=== PATIENT | female | born 1940 | race Caucasian/White ===

== ENCOUNTER 2021-04-22 16:18 | Inpatient (IN) | payer MEDICARE, SELFPAY ==
[2021-04-22 17:56] VITALS: BP 120/61; PULSE 83; RESP 24; TEMP 36.9; O2SAT 88; BMI 16.2
--- NOTE | 2021-04-22 18:13 | XRR_ITS ---
PROCEDURE INFORMATION: Exam: XR Chest Exam date and time: 04/22/2021 6:13 PM Age: 81 years old Clinical indication: Cough and shortness of breath; Patient HX: SOB, weakness, and cp for 2 weeks TECHNIQUE: Imaging protocol: XR of the chest. Views: 1 view. COMPARISON: CR Chest 1 [place] [id number] 11/12/2015 9:41 AM FINDINGS: Lungs: Emphysematous changes. Patchy posterior left lower lobe opacification. Pleural spaces: Unremarkable. No pleural effusion. No pneumothorax. Heart/Mediastinum: Unremarkable. No cardiomegaly. Bones/joints: Unremarkable. XR/XR chest 1V portable [id number] IMPRESSION: Left lower lobe bronchopneumonia suspected.
[2021-04-22 19:16] VITALS: RESP 20
[2021-04-22] MEDS: morphine 4 mg/mL SDV 1 mL IVP (19:16)
[2021-04-22 19:23] LABS: Basophils # 0.1 10^3/uL (0.0-0.1); Basophils % 0.5 %; Eosinophils % 0.2 %; Hematocrit 42.6 % (37.0-47.0); Hemoglobin 14.5 g/dL (11.5-15.3); Lymphocytes # 0.8 10^3/uL (0.8-4.8); Lymphocytes % 8.5 %; Mean Corpuscular Hemoglobin 29.6 pg (28.0-34.0); Mean Corpuscular Volume 86.9 fl (81-99); Mean Platelet Volume 11.3 fL (7.4-10.4); Monocytes # 0.7 10^3/uL (0.2-0.9); Monocytes % 7.5 %; Neutrophils # 7.54 10^3/uL (1.8-7.7); Neutrophils % 82.1 %; Nucleated Red Blood Cells % 0 %; Platelet Count 220 10^3/cmm (130-400); Red Cell Distribution Width 13.2 % (12.1-15.1); White Blood Count 9.2 10^3/uL (4.0-10.0)
--- NOTE | 2021-04-22 19:29 | W.ED.WEAKNES ---
HPI - Weakness General: Chief complaint: Weakness Stated complaint: really sick, very weak Time Seen by Provider: 04/22/21 18:04 Source: patient Mode of arrival: ambulatory Limitations: no limitations History of Present Illness: 81-year-old female states that over the last 1 to 2 weeks she has been having extreme weakness along with diarrhea and nausea. States she has had a decreased appetite and has been losing weight. States that she has became so weak that she has not been able to walk. Does have some dyspnea pulse ox was in the 80s here on room air denies any fevers. She denies any worsening improving factors. Associated symptoms: Denies chest pain, chills, dysuria, easy bruising, fever(s), headache(s), nausea or vomiting Review of Systems Const: Denies: fever(s), chills, body aches or change in appetite Eyes: Denies: blurry vision or eye discomfort ENMT: Denies: throat pain or dental pain Card: Denies: chest pain Resp: Denies: dyspnea GI: Denies: abdominal pain, nausea, vomiting or diarrhea : Denies: dysuria Musc: Denies: neck pain or back pain Skin/Breast: Denies: rash Neuro: Reports: weakness in extremities; Denies: headache(s) Psych: Denies: depression Yassine/Lymph: Denies: easy bruising All/Imm: Denies: urticaria PFSH ED PFSH: Medical History COPD (chronic obstructive pulmonary disease) Diabetes Hyperlipidemia Hypertension Surgical History History of hip replacement left hip History of hysterectomy for cancer History of tonsillectomy Family History Other Cancer Lung disease Denies family history of Diabetes Hypertension Social History Smoking and tobacco status: current every day smoker Alcohol intake: current Alcohol intake frequency: few times a week Alcohol type: beer History of recent travel: No Physical Exam Const: COMMON NORMALS: no acute distress, patient oriented x3 and healthy appearing GENERAL APPEARANCE: disheveled, lethargic and ill appearing ORIENTATION/CONSCIOUSNESS: Yes lethargic HENMT: COMMON NORMALS: normocephalic and atraumatic HEAD & SCALP: normocephalic and atraumatic Eye: COMMON NORMALS: Equal, round and reactive pupils present and EOMs intact bilaterally PUPIL: Yes Equal, round and reactive pupils present Neck/C-Spine: COMMON NORMALS: full ROM and supple Chest: COMMONS NORMALS: normal inspection of the chest and normal palpation of entire chest wall Resp: COMMON NORMALS: normal respiratory effort, No retractions, No use of accessory muscles and clear to auscultation bilaterally AUSCULTATION: clear to auscultation bilaterally Cardio: COMMON NORMALS: regular rate, regular rhythm and No murmurs present (Cardio) RATE: regular rate RHYTHM: regular rhythm GI: COMMON NORMALS: Normal to inspection, nondistended, normoactive bowel sounds present, Soft to palpation, non-tender and no masses PALPATION: Yes Soft to palpation Extremity: COMMON NORMALS: normal to inspection and full ROM Neuro: COMMON NORMALS: patient oriented x3, moves all extremities and no focal motor deficits SENSORIUM/ORIENTATION: Yes lethargic Psych: COMMON NORMALS: mental status grossly normal, Normal thought process present and cooperative THOUGHT PROCESS: Normal thought process present Skin: COMMON NORMALS: no rashes or lesions noted and no wounds GENERAL SKIN EXAM: no rashes or lesions noted Course Vital Signs: Vital signs: Vital Signs Temperature 98.4 F 04/22/21 17:56 Pulse Rate 83 04/22/21 17:56 Respiratory Rate 20 H 04/22/21 19:16 Blood Pressure 120/61 04/22/21 17:56 Pulse Oximetry 88 L 04/22/21 17:56 MDM - Weakness Medical Decision Making Patient presents here with generalized weakness she is very frail here and cachectic. She is unable to ambulate x-ray does show possible pneumonia she also has hypokalemia spoke to hospitalist will admit for hydration we will treat her hypokalemia along with probably physical therapy. Lab Data : 04/22/21 19:13 04/22/21 19:13 Radiology Impressions Chest X-Ray 04/22/21 18:13 IMPRESSION: Left lower lobe bronchopneumonia suspected. Laboratory Results WBC 9.2 10^3/uL (4.0-10.0) 04/22/21 19:13 RBC 4.90 10^6/uL (4.1-5.3) 04/22/21 19:13 Hgb 14.5 g/dL (11.5-15.3) 04/22/21 19:13 Hct 42.6 % (37.0-47.0) 04/22/21 19:13 MCV 86.9 fl (81-99) 04/22/21 19:13 MCH 29.6 pg (28.0-34.0) 04/22/21 19:13 MCHC 34.0 g/dL (30.0-36.0) 04/22/21 19:13 RDW 13.2 % (12.1-15.1) 04/22/21 19:13 Plt Count 220 10^3/cmm (130-400) 04/22/21 19:13 MPV 11.3 fL (7.4-10.4) H 04/22/21 19:13 Neut % (Auto) 82.1 % 04/22/21 19:13 Lymph % (Auto) 8.5 % 04/22/21 19:13 [place] % (Auto) 7.5 % 04/22/21 19:13 Eos % (Auto) 0.2 % 04/22/21 19:13 Baso % (Auto) 0.5 % 04/22/21 19:13 Neut # (Auto) 7.54 10^3/uL (1.8-7.7) 04/22/21 19:13 Lymph # (Auto) 0.8 10^3/uL (0.8-4.8) 04/22/21 19:13 [place] # (Auto) 0.7 10^3/uL (0.2-0.9) 04/22/21 19:13 Eos # (Auto) 0.0 10^3/uL (0.0-0.8) 04/22/21 19:13 Baso # (Auto) 0.1 10^3/uL (0.0-0.1) 04/22/21 19:13 Nucleated RBC % (auto) 0 % 04/22/21 19:13 Nucleated RBCs # 0.0 /100WBC 04/22/21 19:13 Sodium 129 mmol/L (136-145) L 04/22/21 19:13 Potassium 2.6 mmol/L (3.5-5.1) L* 04/22/21 19:13 Chloride 84 mmol/L (98-107) L 04/22/21 19:13 Carbon Dioxide 26 mmol/L (22-29) 04/22/21 19:13 Anion Gap 21.6 (5-19) H 04/22/21 19:13 BUN 18 mg/dL (8-23) 04/22/21 19:13 Creatinine 0.7 mg/dL (0.5-0.9) 04/22/21 19:13 GFR Calculation Not Reportable 04/22/21 19:13 Glucose 404 mg/dL (65-115) H 04/22/21 19:13 Calculated Osmolality 287 mOsm/kg (285-295) 04/22/21 19:13 Calcium 8.2 mg/dL (8.5-10.5) L 04/22/21 19:13 Total Bilirubin 0.4 mg/dL (0.15-1.2) 04/22/21 19:13 AST 26 U/L (0-32) 04/22/21 19:13 ALT 16 U/L (0-33) 04/22/21 19:13 Alkaline Phosphatase 62 IU/L (35-105) 04/22/21 19:13 Troponin T Baseline 21 ng/L (0-10) H 04/22/21 20:10 Total Protein 6.3 g/dL (6.6-8.7) L 04/22/21 19:13 Albumin 3.3 g/dL (3.5-5.2) L 04/22/21 19:13 Globulin 3.0 g/dL (1.3-4.6) 04/22/21 19:13 Lipase 5 U/L (13-60) L 04/22/21 19:13 Discharge Plan Discharge Patient Disposition: Admitted As Inpatient Clinical Impression: Weakness, Pneumonia, Hypokalemia Condition: Stable Prescriptions: No Action gabapentin 100 mg capsule 100 mg PO BID PRN0RF pravastatin 40 mg tablet 40 mg PO DAILY 0RF losartan 100 mg tablet 100 mg PO DAILY 0RF metformin 500 mg tablet 500 mg PO BID 0RF insulin detemir U-100 100 unit/mL (3 mL) insulin pen 100 unit SUBCUT DAILY 0RF Rx Instructions: as directed by pcp insulin aspart U-100 [Novolog Flexpen U-100 Insulin] 100 unit/mL (3 mL) insulin pen 100 unit SUBCUT DAILY 0RF Rx Instructions: as directed by pcp Referrals: Behzad Basilio MD [Family Provider] - Coding Level of Care Code ED Spooler Rubber Strand for Chg Fwd Exam Comprehensive
[2021-04-22] MEDS: cefTRIAXone 1,000 MG in sodium chloride 0.9% (plus) 50 ML 100 MG IV (19:43)
[2021-04-22] MEDS: azithromycin 500 MG in sodium chloride 0.9% 250 ML 250 MG IV (19:43)
[2021-04-22 19:52] LABS: Alanine Aminotransferase 16 U/L (0-33); Albumin Level 3.3 g/dL (3.5-5.2); Alkaline Phosphatase 62 IU/L (35-105); Anion Gap 21.6 (5-19); Aspartate Amino Transferase 26 U/L (0-32); Blood Urea Nitrogen 18 mg/dL (8-23); Calcium 8.2 mg/dL (8.5-10.5); Carbon Dioxide 26 mmol/L (22-29); Chloride 84 mmol/L (98-107); Creatinine Clr Calc Pharmacy 35.7443; Glucose 404 mg/dL (65-115); Lipase 5 U/L (13-60); Osmolality Calculated 287 mOsm/kg (285-295); Sodium 129 mmol/L (136-145); Total Bilirubin 0.4 mg/dL (0.15-1.2); Total Protein 6.3 g/dL (6.6-8.7)
[2021-04-22 19:54] LABS: Potassium 2.6 mmol/L (3.5-5.1)
--- NOTE | 2021-04-22 20:14 | ECG_ITS ---
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 Measurements Intervals [place] Rate: 80 P: 75 AL: 202 QRS: -23 QRSD: 116 T: 92 QT: 383 QTc: 442 Interpretive Statements SINUS RHYTHM MODERATE INTRAVENTRICULAR CONDUCTION DELAY [105+ ms QRS DURATION, 80+ ms Q/S IN V1/V2, NO Q AND 60+ ms R IN I/aVL/V5/V6] ABNORMAL QRS-T ANGLE [QRS-T AXIS DIFFERENCE > 60] Compared to ECG 11/12/2015 09:41:01 Intraventricular conduction delay now present Sinus tachycardia no longer present Left anterior fascicular block no longer present Electronically Signed On 04-22-2021 20:21:55 INTERIOR DECORATOR PAPERHANGING by Mckinley Mcclellan M.D. [id number]
[2021-04-22 20:54] LABS: Troponin(5th) Baseline 21 ng/L (0-10)
[2021-04-22 21:14] LABS: Adenovirus Not Detected (NOT DETECT); Chlamydia Pneumoniae Not Detected (NOT DETECT); Coronavirus 229E,HKU1,NL63,OC4 Not Detected (NOT DETECT); Human Metapneumovirus Not Detected (NOT DETECT); Human Rhinovirus/Enterovirus Detected (NOT DETECT); Influenza A Not Detected (NOT DETECT); Influenza A H1 Not Detected (NOT DETECT); Influenza A H1-2009 Not Detected (NOT DETECT); Influenza A H3 Not Detected (NOT DETECT); Influenza B Not Detected (NOT DETECT); Mycoplasma Pneumoniae Not Detected (NOT DETECT); Parainfluenza Virus Type 1 Not Detected (NOT DETECT); Parainfluenza Virus Type 2 Not Detected (NOT DETECT); Parainfluenza Virus Type 3 Not Detected (NOT DETECT); Parainfluenza Virus Type 4 Not Detected (NOT DETECT); Respiratory Syncytial Virus A Not Detected (NOT DETECT); Respiratory Syncytial Virus B Not Detected (NOT DETECT); SARS-COV-2 Detected (NOT DETECT)
[2021-04-22 21:29] LABS: Add Urine Microscopic? YES; Bilirubin Urine Neg (Negative); Blood Urine 2+ (Negative); Glucose Urine UA 4+ (Normal); Ketones Urine 1+ (Negative); Leukocyte Esterase Urine Negative (Negative); Nitrate Urine Negative (Negative); Protein Urine 2+ (Negative); Specific Gravity, Urine 1.015 (1.005-1.030); Urine Appearance Clear (CLEAR); Urine Color Yellow (Yellow); Urobilinogen Urine Neg (Negative); pH Urine 6 (5-7)
[2021-04-22 21:30] LABS: Add Urine Culture? No; Fine Granular Casts Urine 0-4 /lpf; RBC Urine 0-4 /hpf (0-2); Squamous Epithelial Cell Urine 0-4 /hpf (0-5); WBC Urine RARE /hpf (0-5)
[2021-04-22 21:54] LABS: Human Metapneumovirus Not Detected (NOT DETECT); Human Rhinovirus/Enterovirus Detected (NOT DETECT); Results from Genmark
[2021-04-22 21:55] LABS: Results from Genmark
--- NOTE | 2021-04-22 22:08 | PM.HP ---
Providers/Chief Complaint Admitting Physician: Vinnie Parks DO Chief Complaint: really sick, very weak History of Present Illness The patient is an 81-year-old female who presented to [facility] which are possibly 2 weeks prior to hospitalization. In addition to this the patient complains of generalized weakness. Since the time of onset, she admits to rigors, cough productive yellow sputum, diarrhea, myalgia, light headedness, dizziness. She denies fever, nausea, vomiting, wheeze, chest pain, dyspnea, peripheral edema. She present for further evaluation Review of Systems General: Reports: 10 or more systems reviewed and unremarkable except in HPI and below Medications/Allergies Home Medications Medication Instructions Recorded Confirmed Last Taken Type gabapentin 100 mg capsule 100 mg PO BID PRN 06/10/20 06/24/20 Unknown History insulin aspart U-100 100 unit/mL 100 unit SUBCUT DAILY 06/10/20 06/24/20 Unknown History (3 mL) subcutaneous pen (Novolog Flexpen U-100 Insulin aspart) insulin detemir U-100 100 unit/mL 100 unit SUBCUT DAILY 06/10/20 06/24/20 Unknown History (3 mL) subcutaneous pen losartan 100 mg tablet 100 mg PO DAILY 06/10/20 06/24/20 Unknown History metformin 500 mg tablet 500 mg PO BID 06/10/20 06/24/20 Unknown History pravastatin 40 mg tablet 40 mg PO DAILY 06/10/20 06/24/20 Unknown History Allergies Allergy/AdvReac Type Severity Reaction Status Date / Time Corticosteroids Allergy increased Verified 04/22/21 17:56 (Glucocorticoids) blodd sugar PFSH Acute PFSH: Medical History COPD (chronic obstructive pulmonary disease) Diabetes Hyperlipidemia Hypertension Surgical History History of hip replacement left hip History of hysterectomy for cancer History of tonsillectomy Family History Other Cancer Lung disease Denies family history of Diabetes Hypertension Social History Smoking and tobacco status: current every day smoker Alcohol intake: current Alcohol intake frequency: few times a week Alcohol type: beer History of recent travel: No Vitals/I&O/Wt Last Vital Signs Temp 98.4 F 04/22/21 17:56 Pulse 83 04/22/21 17:56 Resp 20 H 04/22/21 19:16 BP 120/61 04/22/21 17:56 Pulse Ox 88 L 04/22/21 17:56 Weight last 48 hrs Weight 40.37 kg Physical Exam Const: COMMON NORMALS: no acute distress, average body habitus, patient oriented x3, no limitations, healthy appearing, alert and well nourished HENMT: COMMON NORMALS: normocephalic, atraumatic, hearing grossly normal bilaterally, external ears normal, EAC's normal, TM's normal bilaterally, Normal external nose present, Normal nasal mucous membranes and turbinates present, moist oral mucous membranes, oropharynx normal, dentition normal and gingiva normal HEAD & SCALP: normal to inspection FACE & SINUS: normal facial exam NOSE: Normal external nose present EXTERNAL EAR: Yes external ears normal Eye: COMMON NORMALS: Equal, round and reactive pupils present, EOMs intact bilaterally, conjunctivae normal, no scleral icterus, no papilledema, normal visual ambrosio by confrontation and fundi normal bilaterally EOM: Yes EOM abnormal Neck/C-Spine: COMMON NORMALS: full ROM, no lymphadenopathy, supple, no meningeal signs, no JVD, Thyroid normal and No carotid bruits Chest: COMMONS NORMALS: normal inspection of the chest, normal palpation of entire chest wall, normal inspection of the breasts and normal palpation of the breasts Resp: COMMON NORMALS: normal respiratory effort, No retractions, No use of accessory muscles, clear to auscultation bilaterally and percussion normal AUSCULTATION: clear to auscultation bilaterally Cardio: COMMON NORMALS: no JVD, regular rate, regular rhythm, S1 normal heart sound present, S2 normal heart sound present, No gallops present (Cardio), No clicks present (Cardio), No murmurs present (Cardio), No rub (Cardio) and Peripheral pulses 2+ throughout GI: COMMON NORMALS: Normal to inspection, nondistended, normoactive bowel sounds present, Soft to palpation, non-tender, No hepatosplenomegaly present, no masses and no bruits : COMMON NORMALS: Yes no CVA tenderness, Yes normal external appearance, Yes normal appearance of the vagina, Yes normal appearance of the cervix, Yes normal bimanual exam, Yes No adnexal tenderness and Yes no masses Back/Pelvis: THORACIC SPINE/UPPER BACK: Yes normal to inspection LUMBAR SPINE/LOWER BACK: Yes normal to inspection Extremity: GENERAL: Yes normal exam except as noted Neuro: COMMON NORMALS: patient oriented x3, CN's II-XII intact bilaterally, moves all extremities, no focal motor deficits, no sensory deficits noted, deep tendon reflexes 2+ bilaterally and gait normal CRANIAL NERVES: Yes CN normal except as noted MOTOR EXAM: 5/5 motor strength present throughout DEEP TENDON REFLEXES: Right triceps reflex intensity grade: 2+, Left triceps reflex intensity grade: 2+, Rt Biceps (C5, C6): 2+, Left biceps reflex intensity grade: 2+, Right brachioradialis reflex intensity grade: 2+, Left brachioradialis reflex intensity grade: 2+, Right patellar reflex intensity grade: 2+, Left patellar reflex intensity grade: 2+, Right ankle reflex intensity grade: 2+ and Left ankle reflex intensity grade: 2+ PUPIL EXAM: Normal pupillary reactivity/response: bilateral, Dilated: bilateral, Pinpoint: bilateral, Mid position: bilateral, Sluggish: bilateral and Fixed/non-reactive: bilateral Psych: COMMON NORMALS: mental status grossly normal, Normal thought process present, cooperative, normal affect, speech normal, activity/motor behavior normal, denies hallucinations, denies homicidal ideation and denies suicidal ideation Data : 04/22/21 19:13 04/22/21 19:13 A&P Assessment and plan (1) Weakness: Status: Acute Plan Left lower lobe pneumonia. A cephamycin 500 Mill grams IV daily plus Rocephin 1 g IV daily plus DuoNeb every 6 hours Hypokalemia. Telemetry monitoring. Will monitor potassium level intermittently and supplements necessary Hyponatremia. We will monitor sodium level intermittently. IV normal saline at 75 ML's per hour Elevated troponin. A symptomatic from an ACS standpoint. Will monitor patient on telemetry and check serial cardiac enzymes. Recheck EKG on the morning of April 23, 2021 Query history of cervical cancer versus uterine cancer, status post hysterectomy. Outpatient follow-up with obstetrics/gynecology and/or hematology/oncology upon discharge if she is still being monitored for this potential medical condition Neuropathy COPD. Not O2 dependent. DuoNeb every 6 hours Diabetes. Will check fasting glucose every before meals and at bedtime and provide insulin sliding scale plus NovoLog 100 units subcu tensely daily plus insulin detemir 100 units of [place] daily plus Metformin 500 Mill grams by mouth twice a day Hyperlipidemia. 1040 Mill grams by mouth daily at bedtime Hypertension. Losartan 100 Mill grams by mouth daily Smoker. The patient becomes regarding smoking cessation DVT Proflex is. Lovenox 30 Milgrom subcutaneous daily Attestations Medical Necessity Statement*: Hospitalization is necessary as witnessed by this H&P. Patient expected to be discharge within 48 hours Coding Level of Care Code Acute Environmental Emergencies Planner for Amie Tolentino Diagnoses Weakness R53.1
[2021-04-22 22:57] LABS: Troponin 5 2HR 24.26 ng/L (0-10)
[2021-04-22 23:00] LABS: Troponin 5 2HR Delta 3.26 ABS# (0-10)
[2021-04-23] VITALS (18 sets, daily range): BP systolic 84–128; BP diastolic 35–59; PULSE 66–82; RESP 16–27; TEMP 36.4–36.7; O2SAT 89–95; BMI 16.2
--- NOTE | 2021-04-23 00:14 | ECG_ITS ---
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 Measurements Intervals [place] Rate: 78 P: 69 [place]: 199 QRS: -40 QRSD: 120 T: 91 QT: 410 QTc: 467 Interpretive Statements SINUS RHYTHM LEFT AXIS DEVIATION [QRS AXIS < -30] MODERATE INTRAVENTRICULAR CONDUCTION DELAY [110+ ms QRS DURATION] ABNORMAL QRS-T ANGLE [QRS-T AXIS DIFFERENCE > 60] Compared to ECG 04/22/2021 19:37:13 Left-axis deviation now present Electronically Signed On 04-23-2021 17:49:30 HEALTHCARE PROF by Markos Childress M.D. [id number]
[2021-04-23] MEDS: potassium chloride ER 20 mEq Tablet 40 MEQ PO (00:50)
--- NOTE | 2021-04-23 00:51 | PC.NURSE ---
patient declines potassium, states chokes on the medications.
[2021-04-23] MEDS: sodium chloride 0.9% 1,000 ML 75 ML IV ×2 (01:51→17:14)
[2021-04-23] MEDS: lidocaine 1% 5 ML in potassium chloride premix 100 ML 50 ML IV ×2 (01:51→04:58)
[2021-04-23] MEDS: enoxaparin 40 mg/0.4 mL Syringe 30 MG SUBCUT (01:51)
[2021-04-23 02:27] LABS: Anion Gap 14.2 (5-19); Blood Urea Nitrogen 17 mg/dL (8-23); Calcium 7.3 mg/dL (8.5-10.5); Carbon Dioxide 32 mmol/L (22-29); Chloride 87 mmol/L (98-107); Creatinine Clr Calc Pharmacy 35.7443; Glucose 450 mg/dL (65-115); Osmolality Calculated 293 mOsm/kg (285-295); Sodium 131 mmol/L (136-145)
[2021-04-23 02:28] LABS: Potassium 2.2 mmol/L (3.5-5.1); Troponin 5 6HR 22.51 ng/L (0-10); Troponin 5 6HR Delta 1.51 ng/L (0-12)
--- NOTE | 2021-04-23 06:00 | ECG_ITS ---
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 Measurements Intervals [place] Rate: 77 P: 79 [place]: 181 QRS: -39 QRSD: 116 T: 87 QT: 406 QTc: 461 Interpretive Statements SINUS RHYTHM LEFT AXIS DEVIATION [QRS AXIS < -30] MODERATE INTRAVENTRICULAR CONDUCTION DELAY [105+ ms QRS DURATION, 80+ ms Q/S IN V1/V2, NO Q AND 60+ ms R IN I/aVL/V5/V6] INTERPRETATION BASED ON A DEFAULT AGE OF 40 YEARS Compared to ECG 04/23/2021 01:12:56 No significant changes Electronically Signed On 04-23-2021 17:50:09 SOCIAL MEDIA MARKETER by Markos Childress M.D. [id number] f
--- NOTE | 2021-04-23 07:17 | PC.NURSE ---
WHILE AT BEDSIDE PT IS IN NAD. PT IS AWAKE SUPINE IN BED AND DENIES ANY FURTHER NEEDS AT THIS TIME. UPDATED FAMILY ON CARE.
[2021-04-23] MEDS: ipratropium-albuterol 3 mL Neb INHALATION ×3 (08:02→21:18)
[2021-04-23] MEDS: cefTRIAXone 1,000 MG in sodium chloride 0.9% (plus) 50 ML 100 MG IV (08:45)
[2021-04-23] MEDS: losartan 50 mg Tablet 100 MG PO (08:46)
--- NOTE | 2021-04-23 08:55 | PC.PHAR ---
pt unable to verify her medications-pts granddaughter ben [phone] states she started helping the pt with her meds-ben states the pt doesnt take any of her medications daily states she only uses prn-gabapentin last filled june 2018-novolog flexpen last filled jan 2020-levemir last filled mar 2018-losartan 06/05/2020-pravastatin last filled feb 2019-pts granddaughter states takes those prn-humana also filled glimepiride 4mg daily may 2019 and a spiriva handihaler feb 2019-notes are made in the pharmacy comments
[2021-04-23] MEDS: azithromycin 500 MG in sodium chloride 0.9% 250 ML 250 MG IV (09:03)
[2021-04-23] MEDS: atorvastatin 40 mg Tablet 20 MG PO (09:06)
[2021-04-23] MEDS: zinc gluconate 50 mg Tablet PO (09:07)
[2021-04-23] MEDS: ascorbic acid 500 mg Tablet PO (09:07)
[2021-04-23 09:17] LABS: Glucose Point of Care 347 mg/dL (70-110)
--- NOTE | 2021-04-23 09:28 | PC.NURSE ---
reported from night nurse that 40 meq of potassium has been adm. infromed dr. ahumada he telephone ordered additional 40 meq iv potassium.
[2021-04-23] MEDS: insulin lispro 100 unit/1 mL SUBCUT ×2 (09:43→12:01)
[2021-04-23] MEDS: dexamethasone 10 mg/mL INJ 6 MG IVP (09:46)
[2021-04-23] MEDS: metformin 500 mg Tablet PO (09:47)
--- NOTE | 2021-04-23 09:55 | PC.NURSE ---
PT IS ON CONTINUOUS SPO2, NIBP, AND CM.
--- NOTE | 2021-04-23 09:56 | PC.NURSE ---
PT PROVIDED WITH MEAL TRAY PER PT REQUEST. PT CONDITION IS UNCHANGED. SHE DENIES ANY FURTHER NEEDS.
[2021-04-23] MEDS: remdesivir 200 MG in sodium chloride 0.9% (100 ml) 60 ML 100 MG IV (10:15)
[2021-04-23] MEDS: lidocaine 1% 5 ML in potassium chloride premix 100 ML 25 ML IV (11:29)
[2021-04-23 11:59] LABS: Glucose Point of Care 311 mg/dL (70-110)
--- NOTE | 2021-04-23 12:05 | PC.NURSE ---
dr. ahumada at bedside speaking with pt. informed him of pt map of 63 verbalized understanding no further orders.
--- NOTE | 2021-04-23 12:06 | PC.NURSE ---
complete bed change performed for incontinence of stool and urine.
--- NOTE | 2021-04-23 13:46 | PC.NURSE ---
attempted report nurse unavailable.
--- NOTE | 2021-04-23 13:56 | PC.NURSE ---
attempted report nurse unavailable.
--- NOTE | 2021-04-23 14:57 | PC.NURSE ---
REPORT GIVEN MELISSA ZARCO.
--- NOTE | 2021-04-23 15:35 | P.PN_ITS ---
Subjective Subjective: Patient was seen and examined this morning, she was complaining of generalized weakness, She is very hard of hearing. Overnight vitals and labs have been reviewed. Medications: Medication Review Details: Generic Name Dose Route Start Last Admin Trade Name Valentin PRN Reason Stop Dose Admin Albuterol/Ipratrop ium 3 ml 04/23/21 03:00 04/23/21 14:45 Ipratropium-Albu terol 3 Ml Neb INHALATION 3 ml Q6H.RESPIRATORY S CH Administration Ascorbic Acid 500 mg 04/23/21 09:00 04/23/21 09:07 Ascorbic Acid 50 0 Mg Tablet PO 500 mg DAILY ONOFRE Administration Atorvastatin Calci um 20 mg 04/23/21 09:00 04/23/21 09:06 Atorvastatin 40 Mg Tablet PO 20 mg DAILY ONOFRE Administration Dexamethasone 6 mg 04/23/21 09:00 04/23/21 09:46 Dexamethasone 10 Mg/Ml Inj IVP 6 mg Q24H ONOFRE Administration Azithromycin 500 m g/ Sodium 250 mls @ 250 mls /hr 04/23/21 09:00 04/23/21 11:30 Chloride IV Infused DAILY ONOFRE Infusion Protocol Ceftriaxone Sodium 1,000 mg/ 50 mls @ 100 mls/ hr 04/23/21 09:00 04/23/21 11:30 Sodium Chloride IV Infused DAILY ONOFRE Infusion Protocol Sodium Chloride 1,000 mls @ 75 ml s/hr 04/23/21 00:53 04/23/21 01:51 Sodium Chloride 0.9% IV 75 mls/hr .[id number] ONOFRE Administration Insulin Detemir 30 unit 04/23/21 09:30 04/23/21 10:18 Insulin Detemir 100 Units/1 Ml SUBCUT 30 unit DAILY ONOFRE Administration Zinc Gluconate 50 mg 04/23/21 09:00 04/23/21 09:07 Zinc Gluconate 5 0 Mg Tablet PO 50 mg DAILY ONOFRE Administration Vitals/I&O/Wt Last Vital Signs Temp 98.4 F 04/22/21 17:56 Pulse 80 04/23/21 15:00 Resp 22 H 04/23/21 15:00 BP 94/42 04/23/21 15:00 Pulse Ox 95 04/23/21 15:00 04/23/21 04/23/21 04/23/21 06:59 14:59 22:59 Intake Total 105 / 405 505 / 505 Balance 105 / 405 505 / 505 Weight last 48 hrs Weight 40.37 kg Physical Exam Const: COMMON NORMALS: patient oriented x3 HENMT: COMMON NORMALS: normocephalic and atraumatic HEAD & SCALP: normocephalic and atraumatic Resp: COMMON NORMALS: clear to auscultation bilaterally AUSCULTATION: clear to auscultation bilaterally Cardio: COMMON NORMALS: regular rate, regular rhythm, S1 normal heart sound present, S2 normal heart sound present, No gallops present (Cardio), No murmurs present (Cardio), No rub (Cardio) and Peripheral pulses 2+ throughout RATE: regular rate RHYTHM: regular rhythm HEART SOUNDS: S1 normal heart sound present and S2 normal heart sound present PERIPHERAL PULSES: Peripheral pulses 2+ throughout GI: COMMON NORMALS: Normal to inspection, nondistended, normoactive bowel sounds present, Soft to palpation, non-tender, No hepatosplenomegaly present and no masses AUSCULTATION: Yes normoactive bowel sounds PALPATION: Yes Soft to palpation and Yes No hepatosplenomegaly present RECTAL EXAM: deferred Extremity: COMMON NORMALS: no clubbing, cyanosis or edema and no pedal edema Neuro: COMMON NORMALS: patient oriented x3 Data : 04/22/21 19:13 04/23/21 02:04 Micro: Microbiology 04/23/21 09:21 Blood Culture - Preliminary Blood SPECIMEN COLLECTED 04/23/21 09:25 Blood Culture - Preliminary Blood SPECIMEN COLLECTED 04/22/21 20:45 C.difficile Toxin B Gene (PCR) - Final Stool Routine Collection A&P Assessment and plan (1) Pneumonia due to COVID-19 virus: Status: Acute (2) Hypokalemia: Status: Acute (3) Diabetes: Status: Acute (4) COPD (chronic obstructive pulmonary disease): Status: Acute (5) Hypertension: Status: Acute Plan 81-year-old female with past medical history of diabetes hypertension dyslipidemia COPD not on home oxygen, smoker came in with chief complaint of productive cough with yellow sputum , generalized weakness diarrhea , fatigue , myalgia lightheadedness dizziness. #COVID-19 pneumonia: X-ray chest suggestive of left lower lobe infiltrates Covid PCR positive Currently she is requiring 2 Ls supplemental oxygen. Currently on Covid protocol Follow inflammatory markers (ESR CRP D-dimer ferritin LDH ) Follow urine Legionella antigen Follow urine bacterial antigen panel Follow blood culture Urine culture and urinalysis Sputum Gram stain and culture Continue dexamethasone 6 mg IV daily Continue remdesivir Continue ascorbic acid, zinc DuoNebs Supplemental oxygen as needed Incentive spirometry flutter valve Tessalon Jeovanny She is empirically on ceftriaxone and azithromycin #Diabetes: Follow HbA1c Levemir 30 units subcu daily High-dose sliding scale Carbohydrate consistent diet Fingerstick glucose #Hypertension: Currently she is hypotensive Continue to hold losartan #Hypokalemia: Status post 80 mEq IV potassium Continue to monitor BMP #COPD: Not on home oxygen Duo nebs PLAN 1 #DVT prophylaxis: On Lovenox #CODE STATUS: AND #Disposition: Patient wants to return home upon recovery Attestations Medical Necessity Statement*: Patient is still in hospital for management of Covid pneumonia. Time Spent in Patient Care: Greater than 35 minutes (>than 50% of time spent in counselling and/or direct pt care on unit) . Coding Level of Care Code Acute Offset Plate Maker for [facility] Fwd Exam Detailed Diagnoses Pneumonia due to COVID-19 virus U07.1; J12.82 Hypokalemia E87.6 Diabetes E11.9 COPD (chronic obstructive pulmonary disease) J44.9 Hypertension I10
[2021-04-23 18:16] LABS: Glucose Point of Care 187 mg/dL (70-110)
[2021-04-23 20:59] LABS: Glucose Point of Care 97 mg/dL (70-110)
[2021-04-24] VITALS (12 sets, daily range): BP systolic 101–124; BP diastolic 53–74; PULSE 62–86; RESP 16–24; TEMP 36.3–36.9; O2SAT 94–97
[2021-04-24] MEDS: ipratropium-albuterol 3 mL Neb INHALATION ×4 (02:25→21:20)
[2021-04-24] MEDS: sodium chloride 0.9% 1,000 ML 75 ML IV (03:34)
[2021-04-24] MEDS: remdesivir 100 MG in sodium chloride 0.9% (100 ml) 80 ML IV (05:54)
[2021-04-24 06:05] LABS: Basophils # 0.1 10^3/uL (0.0-0.1); Hematocrit 44.7 % (37.0-47.0); Hemoglobin 13.9 g/dL (11.5-15.3); Lymphocytes # 1.3 10^3/uL (0.8-4.8); Mean Corpuscular HGB Conc 31.1 g/dL (30.0-36.0); Mean Corpuscular Hemoglobin 29.1 pg (28.0-34.0); Mean Corpuscular Volume 93.5 fl (81-99); Monocytes # 0.6 10^3/uL (0.2-0.9); Monocytes % 6.7 %; Neutrophils % 75.3 %; Nucleated Red Blood Cells % 0 %; Platelet Count 257 10^3/cmm (130-400); Red Blood Count 4.78 10^6/uL (4.1-5.3); Red Cell Distribution Width 13.3 % (12.1-15.1); White Blood Count 8.9 10^3/uL (4.0-10.0)
[2021-04-24 06:11] LABS: Erythrocyte Sedimentation Rate 14 mm/hr (0-15)
[2021-04-24 06:17] LABS: D Dimer 1.72 ug/mIFEU (0-0.59)
[2021-04-24 06:23] LABS: Estmated Average Glucose 306; Hemoglobin A1C 12.3 % (4.0-6.0)
[2021-04-24 06:29] LABS: Blood Urea Nitrogen 15 mg/dL (8-23); C Reactive Protein 118.2 mg/L (0.0-4.9); Calcium 8.3 mg/dL (8.5-10.5); Carbon Dioxide 27 mmol/L (22-29); Chloride 98 mmol/L (98-107); Ferritin 662 ng/mL (15-150); Glucose 66 mg/dL (65-115); Osmolality Calculated 291 mOsm/kg (285-295); Sodium 141 mmol/L (136-145)
[2021-04-24 06:37] LABS: Creatinine Clr Calc Pharmacy 35.7443
[2021-04-24 06:38] LABS: Glucose Point of Care 68 mg/dL (70-110)
[2021-04-24 06:38] LABS: Lactate Dehydrogenase 336 U/L (135-214)
[2021-04-24 07:05] LABS: Anion Gap 18.7 (5-19); Potassium 2.7 mmol/L (3.5-5.1)
[2021-04-24 07:17] LABS: Glucose Point of Care 69 mg/dL (70-110)
[2021-04-24 07:26] LABS: Slide Review Slide Review Perform
[2021-04-24 08:11] LABS: Glucose Point of Care 109 mg/dL (70-110)
[2021-04-24] MEDS: lidocaine 1% 5 ML in potassium chloride premix 100 ML 25 ML IV ×2 (08:31→13:18)
[2021-04-24] MEDS: enoxaparin 30 mg/0.3 mL Syringe SUBCUT (08:33)
[2021-04-24] MEDS: dexamethasone 10 mg/mL INJ 6 MG IVP (08:34)
[2021-04-24] MEDS: zinc gluconate 50 mg Tablet PO (08:34)
[2021-04-24] MEDS: atorvastatin 40 mg Tablet 20 MG PO (08:34)
[2021-04-24] MEDS: ascorbic acid 500 mg Tablet PO (08:34)
--- NOTE | 2021-04-24 10:22 | PC.CHAP ---
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 [] Patient/Family/Request visit [] Outpatient visit [] Follow-up visit [] Physician referral [] Code/Alert [x] Routine visit [] Staff referral [] Actively dying [] Patient sleeping [] Family support [] [] Out of room [] Palliative care [] [] Receiving care in room [] Pre-surgical visit [] Trauma [] Long length of stay [] ICU visit [] Other: Relational/Emotional Strength [] Patient feels connected with others/family/visitors/staff [] Distress [] Loneliness/isolation [] Abandonment Spirituality of Patient [] Person of Sujata [] Attends Quaker of their Sujata [] Believes in Prayer [] Reads Bible or Anabaptist materials [] There are Spiritual issues to be addressed Disk Sander Interventions [] Prayer [] Active listening [] Non-anxious presence [] Spiritual/emotional support [] Crisis/trauma care [] Spiritual counseling [] Bereavement support [] Provided bereavement packet [] Provided Bible/devotional materials [] Provided toy/stuffed animal, coloring book to patient or family member [] Provided Communion [] Anointing/[place] [] Salvation [] Completed spiritual assessment [] Other: Impact on Illness or Injury [] Angry [] Fearful [] Anxious [] Often cries [] Exhaustion [] Unable to work [] Unable to attend latter-day [] Unable to walk/stand [] Unable to read [] Unable to drive [] Unable to eat/drink [] Unable to sleep [] Unable to be with family [] Patient intubated [] Other: Summary Time spent with patient
[2021-04-24] MEDS: FUROsemide 10 mg/mL SDV 2mL 20 MG IVP (10:51)
[2021-04-24] MEDS: insulin lispro 100 unit/1 mL SUBCUT ×2 (10:51→17:41)
[2021-04-24] MEDS: cefTRIAXone 1,000 MG in sodium chloride 0.9% (plus) 50 ML 100 MG IV (10:52)
[2021-04-24 11:02] LABS: Glucose Point of Care 246 mg/dL (70-110)
--- NOTE | 2021-04-24 11:06 | P.PN_ITS ---
Subjective Subjective: Patient was seen and examined this morning, having episodes of cough with productive of whitish sputum. Serum potassium has slightly improved to 2.7 today, potassium replacement has been done. Afebrile overnight. Currently requiring 2 to 3 L oxygen to maintain good saturation. Patient is incontinent and urine output has been not properly charted. Watkins placement has been done Medications: Medication Review Details: Generic Name Dose Route Start Last Admin Trade Name Rodriguezq PRN Reason Stop Dose Admin Albuterol/Ipratrop ium 3 ml 04/23/21 03:00 04/23/21 14:45 Ipratropium-Albu terol 3 Ml Neb INHALATION 3 ml Q6H.RESPIRATORY S CH Administration Ascorbic Acid 500 mg 04/23/21 09:00 04/23/21 09:07 Ascorbic Acid 50 0 Mg Tablet PO 500 mg DAILY ONOFRE Administration Atorvastatin Calci um 20 mg 04/23/21 09:00 04/23/21 09:06 Atorvastatin 40 Mg Tablet PO 20 mg DAILY ONOFRE Administration Dexamethasone 6 mg 04/23/21 09:00 04/23/21 09:46 Dexamethasone 10 Mg/Ml Inj IVP 6 mg Q24H ONOFRE Administration Azithromycin 500 m g/ Sodium 250 mls @ 250 mls /hr 04/23/21 09:00 04/23/21 11:30 Chloride IV Infused DAILY ONOFRE Infusion Protocol Ceftriaxone Sodium 1,000 mg/ 50 mls @ 100 mls/ hr 04/23/21 09:00 04/23/21 11:30 Sodium Chloride IV Infused DAILY ONOFRE Infusion Protocol Sodium Chloride 1,000 mls @ 75 ml s/hr 04/23/21 00:53 04/23/21 01:51 Sodium Chloride 0.9% IV 75 mls/hr .[id number] ONOFRE Administration Insulin Detemir 30 unit 04/23/21 09:30 04/23/21 10:18 Insulin Detemir 100 Units/1 Ml SUBCUT 30 unit DAILY ONOFRE Administration Zinc Gluconate 50 mg 04/23/21 09:00 04/23/21 09:07 Zinc Gluconate 5 0 Mg Tablet PO 50 mg DAILY ONOFRE Administration Vitals/I&O/Wt Last Vital Signs Temp 97.9 F 04/24/21 07:14 Pulse 73 04/24/21 08:45 Resp 24 H 04/24/21 08:45 BP 121/72 04/24/21 07:14 Pulse Ox 97 04/24/21 08:45 04/23/21 04/24/21 04/24/21 22:59 06:59 14:59 Intake Total 1225 / 1730 1015 / 2745 340 / 340 Output Total 100 / 100 Balance 1125 / 1630 1015 / 2645 340 / 340 Weight last 48 hrs Weight 40.37 kg Weight 40.37 kg Physical Exam Const: COMMON NORMALS: patient oriented x3 HENMT: COMMON NORMALS: normocephalic and atraumatic HEAD & SCALP: normocephalic and atraumatic Resp: COMMON NORMALS: clear to auscultation bilaterally AUSCULTATION: clear to auscultation bilaterally Cardio: COMMON NORMALS: regular rate, regular rhythm, S1 normal heart sound present, S2 normal heart sound present, No gallops present (Cardio), No murmurs present (Cardio), No rub (Cardio) and Peripheral pulses 2+ throughout RATE: regular rate RHYTHM: regular rhythm HEART SOUNDS: S1 normal heart sound present and S2 normal heart sound present PERIPHERAL PULSES: Peripheral pulses 2+ throughout GI: COMMON NORMALS: Normal to inspection, nondistended, normoactive bowel sounds present, Soft to palpation, non-tender, No hepatosplenomegaly present and no masses AUSCULTATION: Yes normoactive bowel sounds PALPATION: Yes Soft to palpation and Yes No hepatosplenomegaly present RECTAL EXAM: deferred Extremity: COMMON NORMALS: no clubbing, cyanosis or edema and no pedal edema Neuro: COMMON NORMALS: patient oriented x3 Data : 04/24/21 05:50 04/24/21 05:50 Micro: Microbiology 04/23/21 17:20 Gram Stain - Final Sputum - Expectorated Sputum 04/23/21 09:21 Blood Culture - Preliminary Blood NEGATIVE TO DATE 04/23/21 09:25 Blood Culture - Preliminary Blood NEGATIVE TO DATE 04/23/21 17:45 Legionella Urinary Antigen - Final Urine Catheterized 04/22/21 20:45 Enteric Pathogens (PCR) - Final Stool Routine Collection C.difficile Toxin B Gene (PCR) - Final A&P Assessment and plan (1) Pneumonia due to COVID-19 virus: Status: Acute (2) Hypokalemia: Status: Acute (3) Diabetes: Status: Acute (4) COPD (chronic obstructive pulmonary disease): Status: Acute (5) Hypertension: Status: Acute Plan 81-year-old female with past medical history of diabetes hypertension dyslipidemia COPD not on home oxygen, smoker came in with chief complaint of productive cough with yellow sputum , generalized weakness diarrhea , fatigue , myalgia lightheadedness dizziness. #COVID-19 pneumonia: X-ray chest suggestive of left lower lobe infiltrates Covid PCR positive Currently she is requiring 2 Ls supplemental oxygen. Currently on Covid protocol Follow inflammatory markers (ESR CRP D-dimer ferritin LDH ) Follow urine Legionella antigen: Negative Follow up urine bacterial antigen panel: Negative Follow blood culture: Negative Urine culture and urinalysis Sputum Gram stain and culture Continue dexamethasone 6 mg IV daily Continue remdesivir Continue ascorbic acid, zinc DuoNebs Supplemental oxygen as needed Incentive spirometry flutter valve Mucinex Mucomyst inhalation She is empirically on ceftriaxone and azithromycin #Uncontrolled diabetes HbA1c: 12.3 Levemir 20 units subcu daily Low-dose sliding scale Carbohydrate consistent diet Fingerstick glucose #Diarrhea: Stool enteric bacterial pathogen PCR negative Stool C. difficile negative #Hypertension: Currently blood pressure is well controlled Continue to hold losartan #Hypokalemia: Status post 80 mEq IV potassium 40 MeQ potassium oral daily Continue to monitor BMP #COPD: Not on home oxygen Duo nebs PLAN 1 #DVT prophylaxis: On Lovenox #CODE STATUS: AND #Disposition: Patient wants to return home upon recovery Attestations Medical Necessity Statement*: Patient is to be in hospital for management of Covid pna, hypokalemia. Time Spent in Patient Care: Greater than 35 minutes (>than 50% of time spent in counselling and/or direct pt care on unit) . Coding Level of Care Code Acute Environmental Health Technician for [facility] Fwd Exam Detailed Diagnoses Pneumonia due to COVID-19 virus U07.1; J12.82 Hypokalemia E87.6 Diabetes E11.9 COPD (chronic obstructive pulmonary disease) J44.9 Hypertension I10
[2021-04-24] MEDS: azithromycin 500 MG in sodium chloride 0.9% 250 ML 250 MG IV (11:32)
[2021-04-24] MEDS: acetylcysteine 200 mg/mL SDV 4 mL INHALATION ×2 (14:50→21:20)
[2021-04-24 17:04] LABS: Glucose Point of Care 209 mg/dL (70-110)
[2021-04-24] MEDS: guaiFENesin 600 mg Tablet 1200 MG PO (17:41)
[2021-04-24 21:38] LABS: Glucose Point of Care 49 mg/dL (70-110)
[2021-04-24 21:38] LABS: Glucose Point of Care 57 mg/dL (70-110)
[2021-04-24 22:15] LABS: Glucose Point of Care 67 mg/dL (70-110)
[2021-04-24 22:15] LABS: Glucose Point of Care 46 mg/dL (70-110)
[2021-04-24 23:05] LABS: Glucose Point of Care 75 mg/dL (70-110)
[2021-04-25] VITALS (15 sets, daily range): BP systolic 102–122; BP diastolic 58–70; PULSE 70–95; RESP 16–22; TEMP 36.3–36.8; O2SAT 90–100
[2021-04-25 01:18] LABS: Glucose Point of Care 134 mg/dL (70-110)
[2021-04-25] MEDS: ipratropium-albuterol 3 mL Neb INHALATION ×4 (03:52→22:34)
[2021-04-25] MEDS: acetylcysteine 200 mg/mL SDV 4 mL INHALATION ×4 (03:53→22:34)
[2021-04-25] MEDS: remdesivir 100 MG in sodium chloride 0.9% (100 ml) 80 ML IV (05:25)
[2021-04-25 05:42] LABS: Glucose Point of Care 291 mg/dL (70-110)
[2021-04-25 06:10] LABS: Erythrocyte Sedimentation Rate 14 mm/hr (0-15)
[2021-04-25 06:19] LABS: Blood Urea Nitrogen 14 mg/dL (8-23); Calcium 6.9 mg/dL (8.5-10.5); Carbon Dioxide 27 mmol/L (22-29); Chloride 97 mmol/L (98-107); Creatinine Clr Calc Pharmacy 35.7443; Glucose 206 mg/dL (65-115); Osmolality Calculated 284 mOsm/kg (285-295); Sodium 134 mmol/L (136-145)
[2021-04-25 06:49] LABS: Anion Gap 13.3 (5-19); Lactate Dehydrogenase 313 U/L (135-214); Potassium 3.3 mmol/L (3.5-5.1)
[2021-04-25 06:52] LABS: Ferritin 774 ng/mL (15-150)
[2021-04-25 07:02] LABS: D Dimer 2.09 ug/mIFEU (0-0.59)
[2021-04-25 07:42] LABS: Basophils # 0.1 10^3/uL (0.0-0.1); Basophils % 0.8 %; Hematocrit 37.8 % (37.0-47.0); Hemoglobin 12.6 g/dL (11.5-15.3); Lymphocytes % 10.9 %; Mean Corpuscular Hemoglobin 29.3 pg (28.0-34.0); Mean Platelet Volume 12.1 fL (7.4-10.4); Monocytes # 0.5 10^3/uL (0.2-0.9); Monocytes % 4.9 %; Neutrophils # 7.46 10^3/uL (1.8-7.7); Neutrophils % 81.1 %; Nucleated Red Blood Cells % 0 %; Red Cell Distribution Width 13.6 % (12.1-15.1); White Blood Count 9.2 10^3/uL (4.0-10.0)
[2021-04-25 07:46] LABS: Mean Corpuscular HGB Conc 33.3 g/dL (30.0-36.0); Mean Corpuscular Volume 87.9 fl (81-99)
[2021-04-25 07:47] LABS: Platelet Count 145 10^3/cmm (130-400); Slide Review Slide Review Perform
[2021-04-25 08:15] LABS: Glucose Point of Care 189 mg/dL (70-110)
[2021-04-25] MEDS: zinc gluconate 50 mg Tablet PO (08:17)
[2021-04-25] MEDS: dexamethasone 10 mg/mL INJ 6 MG IVP (08:17)
[2021-04-25] MEDS: insulin lispro 100 unit/1 mL SUBCUT ×3 (08:17→17:04)
[2021-04-25] MEDS: ascorbic acid 500 mg Tablet PO (08:18)
[2021-04-25] MEDS: atorvastatin 40 mg Tablet 20 MG PO (08:18)
[2021-04-25] MEDS: potassium chloride ER 20 mEq Tablet 40 MEQ PO (08:18)
[2021-04-25] MEDS: guaiFENesin 600 mg Tablet 1200 MG PO ×2 (08:18→17:03)
[2021-04-25] MEDS: enoxaparin 30 mg/0.3 mL Syringe SUBCUT (08:19)
[2021-04-25] MEDS: cefTRIAXone 1,000 MG in sodium chloride 0.9% (plus) 50 ML 100 MG IV (08:28)
[2021-04-25] MEDS: azithromycin 500 MG in sodium chloride 0.9% 250 ML 250 MG IV (09:05)
[2021-04-25 11:59] LABS: Glucose Point of Care 299 mg/dL (70-110)
--- NOTE | 2021-04-25 14:15 | PM.PN ---
Subjective Subjective: Patient was seen and examined this morning, continues to have significant shortness of breath, largely secondary to underlying COPD, worsened by current Pneumonia. She was seen sitting in the chair, currently requiring minimal supplemental oxygen. Other vitals and labs have been reviewed. Medications: Medication Review Details: Generic Name Dose Route Start Last Admin Trade Name Valentin PRN Reason Stop Dose Admin Albuterol/Ipratrop ium 3 ml 04/23/21 03:00 04/23/21 14:45 Ipratropium-Albu terol 3 Ml Neb INHALATION 3 ml Q6H.RESPIRATORY S CH Administration Ascorbic Acid 500 mg 04/23/21 09:00 04/23/21 09:07 Ascorbic Acid 50 0 Mg Tablet PO 500 mg DAILY ONOFRE Administration Atorvastatin Calci um 20 mg 04/23/21 09:00 04/23/21 09:06 Atorvastatin 40 Mg Tablet PO 20 mg DAILY ONOFRE Administration Dexamethasone 6 mg 04/23/21 09:00 04/23/21 09:46 Dexamethasone 10 Mg/Ml Inj IVP 6 mg Q24H ONOFRE Administration Azithromycin 500 m g/ Sodium 250 mls @ 250 mls /hr 04/23/21 09:00 04/23/21 11:30 Chloride IV Infused DAILY ONOFRE Infusion Protocol Ceftriaxone Sodium 1,000 mg/ 50 mls @ 100 mls/ hr 04/23/21 09:00 04/23/21 11:30 Sodium Chloride IV Infused DAILY ONOFRE Infusion Protocol Sodium Chloride 1,000 mls @ 75 ml s/hr 04/23/21 00:53 04/23/21 01:51 Sodium Chloride 0.9% IV 75 mls/hr .[id number] ONOFRE Administration Insulin Detemir 30 unit 04/23/21 09:30 04/23/21 10:18 Insulin Detemir 100 Units/1 Ml SUBCUT 30 unit DAILY ONOFRE Administration Zinc Gluconate 50 mg 04/23/21 09:00 04/23/21 09:07 Zinc Gluconate 5 0 Mg Tablet PO 50 mg DAILY ONOFRE Administration Vitals/I&O/Wt Last Vital Signs Temp 98.2 F 04/25/21 12:05 Pulse 95 04/25/21 12:05 Resp 19 H 04/25/21 12:05 BP 108/64 04/25/21 12:05 Pulse Ox 90 04/25/21 12:05 04/24/21 04/25/21 04/25/21 22:59 06:59 14:59 Intake Total 105 / 1090 480 / 1570 640 / 640 Output Total 800 / 800 800 / 1600 Balance -695 / 290 -320 / -30 640 / 640 Weight last 48 hrs Weight 40.37 kg Physical Exam Const: COMMON NORMALS: patient oriented x3 HENMT: COMMON NORMALS: normocephalic and atraumatic HEAD & SCALP: normocephalic and atraumatic Resp: COMMON NORMALS: clear to auscultation bilaterally AUSCULTATION: clear to auscultation bilaterally OTHER: Diminished air entry bilaterally Cardio: COMMON NORMALS: regular rate, regular rhythm, S1 normal heart sound present, S2 normal heart sound present, No gallops present (Cardio), No murmurs present (Cardio), No rub (Cardio) and Peripheral pulses 2+ throughout RATE: regular rate RHYTHM: regular rhythm HEART SOUNDS: S1 normal heart sound present and S2 normal heart sound present PERIPHERAL PULSES: Peripheral pulses 2+ throughout GI: COMMON NORMALS: Normal to inspection, nondistended, normoactive bowel sounds present, Soft to palpation, non-tender, No hepatosplenomegaly present and no masses AUSCULTATION: Yes normoactive bowel sounds PALPATION: Yes Soft to palpation and Yes No hepatosplenomegaly present RECTAL EXAM: deferred Extremity: COMMON NORMALS: no clubbing, cyanosis or edema and no pedal edema Neuro: COMMON NORMALS: patient oriented x3 Urinary Catheter Management: Watkins: Cath Placed During This Visit: yes Reason for Continuing Indwelling Catheter: Acute Urinary Retention or Obstruction Urinary Catheter Date of Insertion: 04/24/21 Urinary Catheter Time of Insertion: 11:30 Data : 04/25/21 05:34 04/25/21 05:34 Micro: Microbiology 04/23/21 17:20 Gram Stain - Final Sputum - Expectorated Sputum Sputum Culture - Preliminary 04/23/21 17:45 Bacterial Antigens - Final Urine,Clean Catch 04/23/21 09:21 Blood Culture - Preliminary Blood NEGATIVE TO DATE 04/23/21 09:25 Blood Culture - Preliminary Blood NEGATIVE TO DATE A&P Assessment and plan (1) Pneumonia due to COVID-19 virus: Status: Acute (2) Hypokalemia: Status: Acute (3) Diabetes: Status: Acute (4) COPD (chronic obstructive pulmonary disease): Status: Acute (5) Hypertension: Status: Acute Plan 81-year-old female with past medical history of diabetes hypertension dyslipidemia COPD not on home oxygen, smoker came in with chief complaint of productive cough with yellow sputum , generalized weakness diarrhea , fatigue , myalgia lightheadedness dizziness. #COVID-19 pneumonia: X-ray chest suggestive of left lower lobe infiltrates Covid PCR positive Currently she is requiring 2 Ls supplemental oxygen. Currently on Covid protocol Follow inflammatory markers (ESR CRP D-dimer ferritin LDH ) Follow urine Legionella antigen: Negative Follow up urine bacterial antigen panel: Negative Follow blood culture: Negative Urine culture and urinalysis Sputum Gram stain and culture Continue dexamethasone 6 mg IV daily Continue remdesivir Continue ascorbic acid, zinc DuoNebs Supplemental oxygen as needed Incentive spirometry flutter valve Mucinex Mucomyst inhalation She is empirically on ceftriaxone and azithromycin #Uncontrolled diabetes HbA1c: 12.3 Levemir 20 units subcu daily Low-dose sliding scale Carbohydrate consistent diet Fingerstick glucose #Diarrhea: Stool enteric bacterial pathogen PCR negative Stool C. difficile negative #Hypertension: Currently blood pressure is well controlled Continue to hold losartan #Hypokalemia: Status post 80 mEq IV potassium 40 MeQ potassium oral daily Continue to monitor BMP #COPD: Not on home oxygen Duo nebs PLAN 1 #DVT prophylaxis: On Lovenox #CODE STATUS: AND #Disposition: Patient wants to return home upon recovery Attestations Medical Necessity Statement*: Patient needs to be hospital for managed pneumonia. Time Spent in Patient Care: Greater than 35 minutes (>than 50% of time spent in counselling and/or direct pt care on unit). Coding Level of Care Code Acute Veterinary Technician Instructor for [facility] Fwd Exam Detailed Diagnoses Pneumonia due to COVID-19 virus U07.1; J12.82 Hypokalemia E87.6 Diabetes E11.9 COPD (chronic obstructive pulmonary disease) J44.9 Hypertension I10
--- NOTE | 2021-04-25 16:49 | PC.NURSE ---
Patient vitals stable throughout the shift, patient on 2L. Patient ate better today, not a great appetite though. Patient got up to the chair for the majority of the shift. Patient medrano intact and clean with adequate output. No bowel movement. Will continue to monitor and give report to night nurse.
[2021-04-25 16:58] LABS: Glucose Point of Care 272 mg/dL (70-110)
[2021-04-25 21:27] LABS: Glucose Point of Care 196 mg/dL (70-110)
[2021-04-26] VITALS (11 sets, daily range): BP systolic 114–154; BP diastolic 64–77; PULSE 75–86; RESP 18–22; TEMP 36.4–36.8; O2SAT 88–98
[2021-04-26] MEDS: acetylcysteine 200 mg/mL SDV 4 mL INHALATION ×3 (04:43→14:55)
[2021-04-26] MEDS: ipratropium-albuterol 3 mL Neb INHALATION ×3 (04:43→14:55)
[2021-04-26] MEDS: remdesivir 100 MG in sodium chloride 0.9% (100 ml) 80 ML IV (05:06)
[2021-04-26 06:41] LABS: Blood Urea Nitrogen 13 mg/dL (8-23); C Reactive Protein 28.6 mg/L (0.0-4.9); Carbon Dioxide 31 mmol/L (22-29); Chloride 98 mmol/L (98-107); Creatinine Clr Calc Pharmacy 35.7443; Glucose 128 mg/dL (65-115); Lactate Dehydrogenase 361 U/L (135-214); Osmolality Calculated 294 mOsm/kg (285-295); Sodium 141 mmol/L (136-145)
[2021-04-26 06:43] LABS: Glucose Point of Care 134 mg/dL (70-110)
[2021-04-26 06:51] LABS: Basophils % 0.4 %; Hematocrit 39.6 % (37.0-47.0); Hemoglobin 13.3 g/dL (11.5-15.3); Lymphocytes # 1.3 10^3/uL (0.8-4.8); Mean Corpuscular HGB Conc 33.6 g/dL (30.0-36.0); Mean Corpuscular Hemoglobin 29.7 pg (28.0-34.0); Mean Corpuscular Volume 88.4 fl (81-99); Mean Platelet Volume 11.6 fL (7.4-10.4); Monocytes # 0.5 10^3/uL (0.2-0.9); Monocytes % 4.8 %; Neutrophils # 7.33 10^3/uL (1.8-7.7); Neutrophils % 78.8 %; Nucleated Red Blood Cells % 0 %; Platelet Count 271 10^3/cmm (130-400); Red Blood Count 4.48 10^6/uL (4.1-5.3); Red Cell Distribution Width 13.7 % (12.1-15.1); White Blood Count 9.3 10^3/uL (4.0-10.0)
[2021-04-26] MEDS: atorvastatin 40 mg Tablet 20 MG PO (08:53)
[2021-04-26] MEDS: guaiFENesin 600 mg Tablet 1200 MG PO (08:53)
[2021-04-26] MEDS: FUROsemide 10 mg/mL SDV 4mL 40 MG IVP (08:53)
[2021-04-26] MEDS: zinc gluconate 50 mg Tablet PO (08:53)
[2021-04-26] MEDS: ascorbic acid 500 mg Tablet PO (08:54)
[2021-04-26] MEDS: cefTRIAXone 1,000 MG in sodium chloride 0.9% (plus) 50 ML 100 MG IV (08:54)
[2021-04-26] MEDS: dexamethasone 10 mg/mL INJ 6 MG IVP (08:54)
[2021-04-26] MEDS: potassium chloride ER 20 mEq Tablet 40 MEQ PO (08:54)
[2021-04-26] MEDS: enoxaparin 30 mg/0.3 mL Syringe SUBCUT (08:55)
[2021-04-26 09:26] LABS: Erythrocyte Sedimentation Rate 12 mm/hr (0-15)
[2021-04-26] MEDS: calcium chloride 10% Syr 10 mL 1 GM IVP (09:52)
[2021-04-26] MEDS: azithromycin 500 MG in sodium chloride 0.9% 250 ML 250 MG IV (09:53)
[2021-04-26 11:11] LABS: Glucose Point of Care 318 mg/dL (70-110)
[2021-04-26 11:21] LABS: Ferritin 724 ng/mL (15-150)
[2021-04-26] MEDS: insulin lispro 100 unit/1 mL SUBCUT (12:19)
--- NOTE | 2021-04-26 14:54 | P.DS_ITS ---
Discharge Providers Date of Admission: 04/24/21 15:11 Date of Discharge: April 26, 2021 Attending Provider at Admission: Vinnie Parks DO Attending Provider at Discharge: Ty Todd MD Diagnoses at Discharge Discharge Diagnosis (1) Pneumonia due to COVID-19 virus: Status: Acute (2) Hypokalemia: Status: Acute (3) Diabetes: Status: Acute (4) COPD (chronic obstructive pulmonary disease): Status: Acute (5) Hypertension: Status: Acute Reason for Visit Reason for Visit: really sick, very weak Hospital Course Hospital Course 81-year-old female with past medical history of diabetes hypertension dyslipidemia COPD not on home oxygen, smoker came in with chief complaint of productive cough with yellow sputum , generalized weakness diarrhea , fatigue , myalgia lightheadedness dizziness. Admitted for management of Covid pneumonia. She was kept on Covid protocol: Inflammatory markers were trended, she was kept on remdesivir dexamethasone empirically on antibiotics And other conservative respiratory support measures, duo nebs , incentive spirometer, flutter valve, Antitussives, blood culture was negative, urine Legionella antigen and bacterial antigen panel was negative Gram stain: Few gram-positive rods , rare gram-positive cocci.She responded well to medical management At the time of discharge, shortness of breath had improved, she qualified for 2 L home oxygen on exertion. She was discharged on albuterol as well as Advair inhaler. Also managed for uncontrolled diabetes HbA1c was 12.3: She was continued on Levemir 10 units subcu twice daily on discharge , she was also continued on NovoLog with meals 5 units subcu 3 times daily with meals. For her diarrhea: Stool enteric bacterial pathogen PCR negative,Stool C. difficile negative. Likely part of viral illness had resolved at the time of discharge, losartan dose was decreased to 50 mg p.o. daily as her blood pressure was from home dose of 100 mg p.o. daily, for adequate blood pressure control, She will keep a blood pressure log and follow-up with her primary care physician for further optimization Of antihypertensive medication as well as, she will also monitor her fingerstick glucose at home and And follow-up with her primary care physician for further optimization of insulin regimen, she has been educated on signs of hypoglycemia, electrolyte corrections were also undertaken during the hospital stay. Patient responded well to above medical management and is being discharged in stable condition to home She will follow up with her primary care physician as an outpatient. Physical Exam Const: COMMON NORMALS: patient oriented x3 HENMT: COMMON NORMALS: normocephalic, atraumatic, hearing grossly normal bilaterally and external ears normal HEAD & SCALP: normocephalic and atrau matic EXTERNAL EAR: Yes external ears normal Eye: COMMON NORMALS: no scleral icterus GENERAL EYE: appearance normal, both eyes and all related structures Chest: COMMONS NORMALS: normal inspection of the chest and normal palpation of entire chest wall CHEST: Yes Symmetrical chest wall rise Resp: COMMON NORMALS: normal respiratory effort and No retractions EFFORT & INSPECTION: Yes symmetric chest movement Cardio: COMMON NORMALS: regular rate, regular rhythm, S1 normal heart sound present, S2 normal heart sound present, No gallops present (Cardio), No murmurs present (Cardio), No rub (Cardio) and Peripheral pulses 2+ throughout RATE: regular rate RHYTHM: regular rhythm HEART SOUNDS: S1 normal heart sound present and S2 normal heart sound present PERIPHERAL PULSES: Peripheral pulses 2+ throughout GI: COMMON NORMALS: Normal to inspection, nondistended, normoactive bowel sounds present, Soft to palpation, non-tender, No hepatosplenomegaly present and no masses AUSCULTATION: Yes normoactive bowel sounds PALPATION: Yes Soft to palpation and Yes No hepatosplenomegaly present RECTAL EXAM: deferred Extremity: COMMON NORMALS: no clubbing, cyanosis or edema and no pedal edema Neuro: COMMON NORMALS: patient oriented x3 Urinary Catheter Management: Watkins: Cath Placed During This Visit: yes Reason for Continuing Indwelling Catheter: Acute Urinary Retention or Obstruction Urinary Catheter Date of Insertion: 04/24/21 Urinary Catheter Time of Insertion: 11:30 Discharge Data Studies Completed and Pending Completed Studies During Hospitalization Category Date Time Status XR chest 1V portable [id number] Stat Exams 04/22/21 18:13 Completed Pending at discharge Category Date Time Status Blood Culture Routine Lab 04/23/21 09:21 Results Radiology Impressions Chest X-Ray 04/22/21 18:13 IMPRESSION: Left lower lobe bronchopneumonia suspected. Laboratory Results WBC 9.3 10^3/uL (4.0-10.0) 04/26/21 05:07 RBC 4.48 10^6/uL (4.1-5.3) 04/26/21 05:07 Hgb 13.3 g/dL (11.5-15.3) 04/26/21 05:07 Hct 39.6 % (37.0-47.0) 04/26/21 05:07 MCV 88.4 fl (81-99) 04/26/21 05:07 MCH 29.7 pg (28.0-34.0) 04/26/21 05:07 MCHC 33.6 g/dL (30.0-36.0) 04/26/21 05:07 RDW 13.7 % (12.1-15.1) 04/26/21 05:07 Plt Count 271 10^3/cmm (130-400) D 04/26/21 05:07 MPV 11.6 fL (7.4-10.4) H 04/26/21 05:07 Neut % (Auto) 78.8 % 04/26/21 05:07 Lymph % (Auto) 14.0 % 04/26/21 05:07 [place] % (Auto) 4.8 % 04/26/21 05:07 Eos % (Auto) 0.0 % 04/26/21 05:07 Baso % (Auto) 0.4 % 04/26/21 05:07 Neut # (Auto) 7.33 10^3/uL (1.8-7.7) 04/26/21 05:07 Lymph # (Auto) 1.3 10^3/uL (0.8-4.8) 04/26/21 05:07 [place] # (Auto) 0.5 10^3/uL (0.2-0.9) 04/26/21 05:07 Eos # (Auto) 0.0 10^3/uL (0.0-0.8) 04/26/21 05:07 Baso # (Auto) 0.0 10^3/uL (0.0-0.1) 04/26/21 05:07 Nucleated RBC % (auto) 0 % 04/26/21 05:07 Nucleated RBCs # 0.0 /100WBC 04/26/21 05:07 ESR 12 mm/hr (0-15) 04/26/21 05:07 D-Dimer 1.20 ug/mIFEU (0-0.59) H 04/26/21 05:07 Sodium 141 mmol/L (136-145) 04/26/21 05:07 Potassium 3.0 mmol/L (3.5-5.1) L 04/26/21 05:07 Chloride 98 mmol/L (98-107) 04/26/21 05:07 Carbon Dioxide 31 mmol/L (22-29) H 04/26/21 05:07 Anion Gap 15.0 (5-19) 04/26/21 05:07 BUN 13 mg/dL (8-23) 04/26/21 05:07 Creatinine 0.4 mg/dL (0.5-0.9) L 04/26/21 05:07 GFR Calculation Not Reportable 04/26/21 05:07 Glucose 128 mg/dL (65-115) H 04/26/21 05:07 POC Glucose 318 mg/dL (70-110) H 04/26/21 10:48 Estimat Average Glucose 306 04/24/21 05:50 Hemoglobin A1c 12.3 % (4.0-6.0) H 04/24/21 05:50 Calculated Osmolality 294 mOsm/kg (285-295) 04/26/21 05:07 Calcium 7.0 mg/dL (8.5-10.5) L 04/26/21 05:07 Ferritin 724 ng/mL (15-150) H 04/26/21 05:07 Total Bilirubin 0.4 mg/dL (0.15-1.2) 04/22/21 19:13 AST 26 U/L (0-32) 04/22/21 19:13 ALT 16 U/L (0-33) 04/22/21 19:13 Alkaline Phosphatase 62 IU/L (35-105) 04/22/21 19:13 Lactate Dehydrogenase 361 U/L (135-214) H 04/26/21 05:07 Troponin T Baseline 21 ng/L (0-10) H 04/22/21 20:10 Troponin T 120 Minute 24.26 ng/L (0-10) H 04/22/21 22:31 Delta Troponin T 3.26 ABS# (0-10) 04/22/21 22:31 Troponin T Hi Sens 6Hr 22.51 ng/L (0-10) H 04/23/21 02:04 Troponin T Hi Sens 6Hr Delta 1.51 ng/L (0-12) 04/23/21 02:04 C-Reactive Protein 28.6 mg/L (0.0-4.9) H 04/26/21 05:07 Total Protein 6.3 g/dL (6.6-8.7) L 04/22/21 19:13 Albumin 3.3 g/dL (3.5-5.2) L 04/22/21 19:13 Globulin 3.0 g/dL (1.3-4.6) 04/22/21 19:13 Lipase 5 U/L (13-60) L 04/22/21 19:13 Urine Color Yellow (Yellow) 04/22/21 20:28 Urine Appearance Clear (CLEAR) 04/22/21 20:28 Urine pH 6 (5-7) 04/22/21 20:28 Ur Specific [place] 1.015 (1.005-1.030) 04/22/21 20:28 Urine Protein 2+ (Negative) H 04/22/21 20:28 Urine Glucose (UA) 4+ (Normal) H 04/22/21 20:28 Urine Ketones 1+ (Negative) H 04/22/21 20:28 Urine Blood 2+ (Negative) H 04/22/21 20:28 Urine Nitrate Negative (Negative) 04/22/21 20:28 Urine Bilirubin Neg (Negative) 04/22/21 20:28 Urine Urobilinogen Neg mg/dL (Negative) 04/22/21 20:28 Ur Leukocyte Esterase Negative (Negative) 04/22/21 20:28 Urine RBC 0-4 /hpf (0-2) H 04/22/21 20:28 Urine WBC Rare /hpf (0-5) 04/22/21 20:28 Ur Squamous Epith Cells 0-4 /hpf (0-5) H 04/22/21 20:28 Amorphous Sediment Not Reportable 04/22/21 20:28 Urine Bacteria None /hpf (NONE) 04/22/21 20:28 Fine Granular Casts 0-4 /lpf H 04/22/21 20:28 Nasal Influ A H1 2009 PCR Not detected (NOT DETECT) 04/22/21 19:13 Coronavirus 229E (PCR) Not detected (NOT DETECT) 04/22/21 19:13 Human Metapneumovir PCR Not detected (NOT DETECT) 04/22/21 21:54 Influenza A (H1) PCR Not detected (NOT DETECT) 04/22/21 19:13 Influenza A (H3) PCR Not detected (NOT DETECT) 04/22/21 19:13 Influenza Type A (PCR) Not detected (NOT DETECT) 04/22/21 19:13 Influenza Type B (PCR) Not detected (NOT DETECT) 04/22/21 19:13 Entero/Rhino (PCR) Detected (NOT DETECT) A 04/22/21 21:54 SARS-CoV-2 (PCR) Detected (NOT DETECT) A 04/22/21 19:13 Vitals Last Vital Signs Temp 98.2 F 04/26/21 07:58 Pulse 83 04/26/21 12:00 Resp 20 H 04/26/21 12:00 BP 124/75 04/26/21 12:00 Pulse Ox 94 04/26/21 12:18 Discharge Plan Discharge Patient Disposition: Home Condition: Stable Prescriptions: New Levemir FlexTouch U-100 Insuln 100 unit/mL (3 mL) insulin pen 10 unit SUBCUT BID 30 Days Qty: 6 2RF Novolog Flexpen U-100 Insulin 100 unit/mL (3 mL) insulin pen 5 unit SUBCUT TID 30 Days Qty: 4.5 3RF Rx Instructions: 7 U SC TID With meals ProAir HFA 90 mcg/actuation HFA aerosol inhaler 1 inh inhalation Q6H PRN (Reason: shortness of breath or wheezing) Qty: 8.5 3RF Advair Diskus 250-50 mcg/dose blister with device 1 inh inhalation BID Qty: 60 3RF Continued aspirin 81 mg Tablet,Delayed Release (Dr/Ec) 81 mg PO DAILY 0RF pravastatin 40 mg tablet 40 mg PO DAILY PRN (Reason: cholesterol) 30 Days Qty: 30 2RF gabapentin 100 mg capsule 100 mg PO TID PRN (Reason: Pain) 30 Days Qty: 90 0RF Changed losartan 100 mg tablet 50 mg PO DAILY PRN (Reason: Blood Pressure) 30 Days Qty: 30 3RF Discontinued Levemir FlexTouch U-100 Insuln 100 unit/mL (3 mL) insulin pen See Rx Instructions .ROUTE .COMPLEX 0RF Rx Instructions: sliding scale prn insulin aspart U-100 [Novolog Flexpen U-100 Insulin] 100 unit/mL (3 mL) insulin pen See Rx Instructions .ROUTE .COMPLEX 0RF Rx Instructions: sliding scale prn Discharge Orders: Discharge Order (Routine); Ordered 04/26/21 Ordered By: Ty Todd Other Ambulatory Orders: DME: Oxygen (Order) Location: None Selected Ordered By: Ty Todd DME: Walker (Order) Location: None Selected Ordered By: Ty Todd Referrals: [facility] [Other] (You can call this number if you would like to private pay for in home services or if after you call your insurance and you qualify for services they may be able to set it up.) [facility] [place] [Outside] (Will be Know more about Home health tomorrow will not be able to set up until Wed at the latest. ) Behzad Basilio MD [Family Provider] - 7-10 days (Please call Tuesday to set a follow up appointment within 7-10 days. ) Discharge Diet: Diabetic Patient Instructions: Albuterol (By mouth), Fluticasone (By breathing), Insulin Aspart, Recombinant (By injection) (Novolog, Novolog FlexPen), Insulin Detemir (By injection) (Levemir, Levemir FlexPen, Levemir..., Hypertension, COPD (Chronic Obstructive Pulmonary Disease) (DC), COVID-19 (Coronavirus Disease 2019) (DC), Opioid Safety Discharge Attestations Time Spent in Discharge Care*: greater than 30 min Quality Metrics Clinical Quality Measures [ No reported AMI, CVA or VTE this stay] Coding Level of Care Code Acute Chg FW OR note Exam Comprehensive Diagnoses Pneumonia due to COVID-19 virus U07.1; J12.82 Hypokalemia E87.6 Diabetes E11.9 COPD (chronic obstructive pulmonary disease) J44.9 Hypertension I10
--- NOTE | 2021-04-26 15:32 | PC.NURSE ---
Patient worked with PT today, recommendations were made. Patient is getting DME walker and oxygen delivered to bedside. Medications were sent to patients preferred pharmacy. Discharge teaching and education were given to patient granddaughter, Cece, all questions were answered at this time. Watkins was discontinued, patient urinated for discharge.
[2021-04-26 21:34] LABS: Glucose Point of Care 182 mg/dL (70-110)
== END 2021-04-26 16:47 | disposition home or self-care (01) | DRG 177 ==
LOC: ER 20:59 → ER IP 22:56 → MEDSURG 04-23 13:05
PROVIDERS: Admitting Provider Internal Medicine; Emergency Provider Emergency Medicine; Family Provider Family Medicine; Visit Provider Internal Medicine
DX: U07.1 COVID-19 (principal); J12.82 Pneumonia due to coronavirus disease 2019; E11.40 Type 2 diabetes mellitus with diabetic neuropathy, unspecified; E11.65 Type 2 diabetes mellitus with hyperglycemia; E78.5 Hyperlipidemia, unspecified; I10 Essential (primary) hypertension; Z96.642 Presence of left artificial hip joint; F17.210 Nicotine dependence, cigarettes, uncomplicated; E87.6 Hypokalemia; I95.9 Hypotension, unspecified; Z79.82 Long term (current) use of aspirin
CPT/HCPCS: 36415; 36416; 51702; 71045; 80048; 80053; 81001; 82728; 82962; 83036; 83615; 83690; 84484; 85025; 85378; 85651; 86140; 86403; 87040; 87070; 87205; 87449; 87493; 87506; 87631; 87635; 87801; 93005; 94640; 94664; 96365; 96366; 96367; 96372; 96375; 97110; 97161; 99285; G0378; J0456; J0696; J1100; J1650; J1815; J1940; J2270; J3480; J3490; J7030; J7050; J7608